=== PATIENT | male | born 1975 | race Caucasian/White ===

== ENCOUNTER 2016-05-02 08:15 | Emergency (ER) | payer SELFPAY ==
[2016-05-02] MEDS ORDERED: LIDOCAINE VISCOUS 2% 15 ML UDC MM STA (08:33)
[2016-05-02] MEDS ORDERED: ONDANSETRON 4 MG/2 ML VIAL IVP STA (08:33)
[2016-05-02] MEDS ORDERED: FAMOTIDINE 20 MG TABLET PO STA (08:33)
[2016-05-02] MEDS ORDERED: SODIUM CHLORIDE 0.9% 1,000 ML IV ONE ×2 (08:33→08:42)
[2016-05-02] MEDS ORDERED: MAG HYDROX/AL HYDROX/SIMETH 30 ML UDC PO STA (08:33)
[2016-05-02] MEDS ORDERED: MAG HYDROX/AL HYDROX/SIMETH 30 ML UDC ONE (08:42)
[2016-05-02] MEDS ORDERED: FAMOTIDINE 20 MG TABLET ONE (08:42)
[2016-05-02] MEDS ORDERED: LIDOCAINE VISCOUS 2% 15 ML UDC MM ONE (08:42)
[2016-05-02] MEDS ORDERED: ONDANSETRON 4 MG/2 ML VIAL ONE (08:42)
== END 2016-05-02 13:25 | disposition home or self-care (01) ==
DX: K29.70 Gastritis, unspecified, without bleeding (principal); I10 Essential (primary) hypertension; F17.200 Nicotine dependence, unspecified, uncomplicated
CPT/HCPCS: 36415; 71020; 74020; 76705; 80053; 83690; 84484; 85025; 93005; 93010; 96374; 99284; A9270